=== PATIENT | female | born 1995 | race Two or more races ===

== ENCOUNTER 2025-04-09 09:33 | Outpatient (AMB) | payer OTHER, SELFPAY ==
--- NOTE | 2025-04-09 09:40 | MHC.OFFVIS ---
Vital Signs 04/09/25 09:50 BP 108/74 Position Sitting Pulse 98 Intake Visit Reasons: Migraine Follow Up Allergies No Known Allergies Allergy (Verified 04/09/25 09:43) Medication List - Last Reconciled 04/09/25 by Hazel Lares CNP bupropion HCl XL 150 mg PO DAILY buspirone 10 mg PO TID clonazepam 0.5 mg PO BID PRN ibuprofen 600 mg PO DAILY PRN sertraline 50 mg PO DAILY HPI Comments Details: 29-year-old woman with headaches since childhood. She returns after 13 months. She was having about 3 headaches/week, usually frontal but sometimes left-sided, throbbing-type pain with photophobia and sonophobia. No nausea or vomiting. She had to lay down in a dark, quiet room. She was taking ibuprofen as needed which helped most of the time. She was no longer nursing and was not planning for in the near future. She was under some stress and sleep was not so good. Review of Systems Const Denies chills, Denies daytime sleepiness, Denies difficulty sleeping, Denies fatigue, Denies fever(s), Denies frequent falls, Reports headache(s), Denies increased appetite, Denies poor appetite, Denies snoring, Denies weakness, Denies weight gain and Denies weight loss Eyes Denies loss of vision ENT Denies vertigo, Denies dizziness and Reports headache(s) Card Denies chest pain at rest, Denies chest pain with activity, Denies syncope, Denies leg edema and Denies palpitations Resp Denies snoring GI Denies constipation, Denies heartburn, Denies diarrhea and Denies nausea Denies urinary frequency, Denies urinary incontinence and Denies urinary urgency Musc Denies abnormal gait, Denies numbness and Denies tingling Skin/Breast Denies dry skin and Denies rash Neuro Denies abnormal gait, Denies vertigo, Denies dizziness, Denies syncope, Denies frequent falls, Reports headache(s), Denies lack of coordination, Denies loss of vision, Denies memory loss, Denies numbness, Denies restless legs, Denies seizure-like activity, Denies tingling, Denies paresthesias, Denies tremor(s) and Denies weakness Psych Reports anxiety, Denies depression, Denies auditory hallucinations, Denies memory loss, Denies visual hallucinations and Denies suicidal ideation Endo Denies fatigue and Denies palpitations Physical Exam Const Other: General Appearance:? normal, in no acute distress. Skin:? no rashes, no significant birthmarks. Heart:? S1, S2 normal, no murmurs. Lungs:? clear anteriorly and posteriorly. Extremities:? no edema. Psych:? alert, oriented, cognitive function intact, cooperative with exam. Neuro Other: Mental Status:?Normal attention, orientation, memory and affect.? Cranial Nerves:?Pupils are equal, round and reactive to light. External occular muscles are intact. Visual [place] are full. Face is symmetrical. Facial sensations are normal. Tongue is midline. Palate elevates symmetrically. Shoulder shrugging is normal. Hearing to bedside conversation is normal. Sensory Exam:?....? Coordination:?No ataxia,?no titubation.? Gait Exam: Within normal limits. Extrapyramidal System:?No tremor, rigidity with normal facial expressions.? Pronator Drift:?Not present.? Involuntary Movements:?No tremors seen.? Speech:?Normal.? Assessment & Plan Assessment & Plan (1) Migraine without aura: Code(s): G43.009 - Migraine without aura, not intractable, without status migrainosus Category: Medical Qualifiers: Status migrainosus presence: without status migrainosus Intractability: not intractable Qualified Code(s): G43.009 - Migraine without aura, not intractable, without status migrainosus Plan: She returned after about 13 months. She was no longer nursing her child and was interested in starting medication for migraine prevention. Start propranolol 10mg 1 tablet daily, use/side effects reviewed. Continue ibuprofen 600mg 1 tablet with food or milk as needed for headache #20 for 30 days. Plan Meds tried: sumatriptan, ibuprofen Medications: New propranolol 10 mg PO DAILY 30 tabs 1RF 30 days ibuprofen 600 mg PO DAILY PRN 20 tabs 3RF headache 30 days Coding Level of Care Code Est Pt Level 4 (79284) Diagnoses Migraine without aura and without status migrainosus, not intractable G43.009 Status migrainosus presence: without status migrainosus Intractability: not intractable
[2025-04-09 09:50] VITALS: BP 108/74; PULSE 98
--- OUTSIDE RECORDS SUMMARY | 2025-04-09 10:19 | XMS_ITS | Clinical Summary ---
Author Organization [address] Address [address] [place] [phone] Phone Care Team Providers Care Outpatient Psychiatrist Name Role Phone Gustavo Erickson MD Primary Care Provider [phone] Allergies No known active allergies Medications buPROPion XL (WELLBUTRIN XL) 150 mg 24 hr tablet Take 1 tablet (150 mg total) by mouth 1 (one) time each day. Prescribed by Psychiatrist Active cholecalcifer ol (VITAMIN D-3) 25 mcg (1,000 unit) tablet Take 1 tablet (1,000 Units total) by mouth 1 (one) time each day. 90 tablet 1 03/17/20 25 Active senna-docusat e (PERICOLACE) 8.6-50 mg per tablet Take 1 tablet by mouth 1 (one) time each day. 30 each 11 03/17/20 25 026 Active cetirizine (ZyrTEC) 10 mg capsule Take 10 mg by mouth daily. 12/31/19 24 025 Discontinued azelastine (OPTIVAR) 0.05 % ophthalmic solution Place 1 Drop into both eyes 2 times daily. 12/30/19 24 025 Discontinued cholecalcifer ol (VITAMIN D-3) 25 mcg (1,000 unit) tablet Take 1 tablet (1,000 Units total) by mouth 1 (one) time each day. 08/30/19 24 025 Discontinued(R eorder) polyethylene glycol (MIRALAX) 17 gram packet Take 17 g by mouth 1 (one) time each day for 3 days. 51 g 03/17/20 25 025 Active Problems Problem Noted Date Diagnosed Date Vulvar itching 09/27/2023 Overview (05/28/2024): Last Assessment & Plan: Explained difficult to tell at this time if she has yeast as miconazole obsures microscopy. Will send culture and treat with fluconazole empirically if her sx do not resolve by tomorrow following Miconazole. Depression 10/23/2018 Overview (05/28/2024): F/u [facility] Migraine without aura and wi thout status migrainosus, not intractable 10/23/2018 Encounters Date Type Department Care Team Description 03/17/2025 3:30 PM EDT Office Visit Adult Medicine [address] [phone] Hodan Calhoun, DORINA Annual physical exam (Primary Dx); Constipation, unspecified constipation type; Depression, unspecified depression type; Migraine without aura and without status migrainosus, not intractable; Encounter for screening for cardiovascular disorders; Need for hepatitis C screening test from Last 3 Months Immunizations Name Administration Dates Next Due HPV 9-valent (Gardisil) 9yo to less than 46yo ,10/23/2018 Surgical History Surgery Date Site/Laterality Comments WISDOM TOOTH EXTRACTION 2016 PROCEDURE: HISTORICAL WISDOM TEETH EXTRACTION Medical History Medical History Date Comments Hypoglycemia DX:Hypoglycemia Depression 10/23/2018 DX:Depression; C OMMENT: F/u [facility] at [facility] Migraine without aura and wi thout status migrainosus, not intractable 10/23/2018 DX:Migraine withou t aura and without status migrainosus, not intractable Family History Medical History Relation Name Comments Diabetes Maternal Grandmother HTN, Th yroid Disorder Cervical cancer Mother Breast cancer Neg Hx Ovarian cancer Neg Hx Uterine cancer Neg Hx Relation Name Status Comments Brother Alive Daughter Alive Father Alive Maternal Grandfather Alive Maternal Grandmother Alive Mother Alive Paternal Grandfather Alive Paternal Grandmother Alive Sister Alive Social History Tobacco Use Types Packs/Day Years Used Date Smoking Tobacco: Never Smokeless Tobacco: Never Tobacco Cessation:Counseling Given: Not Answered Alcohol Use Standard Drinks/Week Comments Not Currently 0 (1 standard drink = 0.6 oz pur e alcohol) Comments Unknown Sex and Gender Information Value Date Recorded Sex Assigned at Not on file Legal Sex Female 12:59 AM EST Gender Identity Not on file Sexual Orientation Not on file Obstetrics History Last Filed Vital Signs Vital Sign Reading Time Taken Comments Blood Pressure 112/83 03/17/2025 3:26 PM EDT Pulse 68 03/17/2025 3:26 PM EDT Temperature 36.4 C (97.6 F) 03/17/2025 3:26 PM EDT Respiratory Rate - - Oxygen Saturation - - Inhaled Oxygen Concentration - - Weight 52.2 kg (115 lb) 03/17/2025 3:26 PM EDT Height 154.9 cm (5' 1 ) 03/17/2025 3:26 PM EDT Body Mass Index 21.73 03/17/2025 3:26 PM EDT Plan of Treatment Upcoming Encounters Date Type Department Care Team (Late st Contact Info) Description 04/20/2025 11:30 AM EDT Office Visit Obstetrics and Gynecology - [id number] [place], [place] [phone] Reta Martinez, [facility] [address], [place] Health Maintenance Due Date Last Done Comments DTaP,Tdap,and Td Vaccines (1 - Tdap) 2016 HPV Vaccines (3 - 3-dose series) 05/20/2019 02/25/2019, 10/23/2018 Social Influencers of Health Screening 07/15/2022 Cervical Cancer Screening: Pap Smear 01/26/2024 01/25/2021, 01/25/2021, 01/25/2021, Additional history exists Influenza Vaccine (#1) 2025 Cholesterol Screening (Lipid Panel) 03/17/2030 03/17/2025, 03/01/2023 Depression Screening Completed 03/17/2025 HIV Screening Completed 03/17/2025, 01/25/2021 Hepatitis C Screening Completed 03/17/2025 COVID-19 Vaccine Discontinued HIB Vaccines Aged Out No longer eligi ble based on patient's age to complete this topic Hepatitis A Vaccines Aged Out No long er eligible based on patient's age to complete this topic Hepatitis B Vaccines Discontinued IPV Vaccines Aged Out No longer eligi ble based on patient's age to complete this topic MMR Vaccines Aged Out No longer eligi ble based on patient's age to complete this topic Meningococcal ACWY Vaccine Aged Out N o longer eligible based on patient's age to complete this topic Meningococcal B Vaccine Aged Out No l onger eligible based on patient's age to complete this topic Pneumococcal Vaccine: Pediatrics (0 to 5 Years) and At-Risk Patients (6 to 49 Years) Aged Out No longer eligible based on patient's age to complete this topic RSV Immunization Patients Under 20 months Aged Out No longer eligible based on patient's age to complete this topic Varicella Vaccines Aged Out No longer eligible based on patient's age to complete this topic Procedures Procedure Name Priority Date/Time Associated Diagnosis Comments HEPATITIS A ANTIBODY IGM Routine 03/17/2025 4:25 PM EDT Annual physical exam Encounter for screening for cardiovascular disorders Need for hepatitis C screening test CBC WITH AUTO DIFFERENTIAL Routine 03/17/2025 4:25 PM EDT Annual physical exam Encounter for screening for cardiovascular disorders Need for hepatitis C screening test COMPREHENSIVE METABOLIC PANEL Routine 03/17/2025 4:25 PM EDT Annual physical exam Encounter for screening for cardiovascular disorders Need for hepatitis C screening test LIPID PANEL WITH REFLEX TO DIRECT LDL Routine 03/17/2025 4:25 PM EDT Encounter for screening for cardiovascular disorders THYROID STIMULATING HORMONE WITH REFLEX TO FREE T4 AND FREE T3 Routine 03/17/2025 4:25 PM EDT Annual physical exam Encounter for screening for cardiovascular disorders Need for hepatitis C screening test CBC AND DIFFERENTIAL Routine 03/17/2025 4:25 PM EDT Annual physical exam Encounter for screening for cardiovascular disorders Need for hepatitis C screening test HEPATITIS C ANTIBODY Routine 03/17/2025 4:25 PM EDT Need for hepatitis C screening test TREPONEMA PALLIDUM ANTIBODY WITH REFLEX TO RPR AND PARTICLE AGGLUTINATION Routine 03/17/2025 4:25 PM EDT Annual physical exam Encounter for screening for cardiovascular disorders Need for hepatitis C screening test HIV 1, 2 ANTIBODY, P24 ANTIGEN WITH REFLEX TO DIFFERENTIATION Routine 03/17/2025 4:25 PM EDT Annual physical exam Encounter for screening for cardiovascular disorders Need for hepatitis C screening test HEPATITIS B SURFACE ANTIBODY Routine 03/17/2025 4:25 PM EDT Annual physical exam Encounter for screening for cardiovascular disorders Need for hepatitis C screening test HEPATITIS B SURFACE ANTIGEN WITH CONFIRMATION Routine 03/17/2025 4:25 PM EDT Annual physical exam Encounter for screening for cardiovascular disorders Need for hepatitis C screening test HEPATITIS B CORE ANTIBODY, TOTAL Routine 03/17/2025 4:25 PM EDT Annual physical exam Encounter for screening for cardiovascular disorders Need for hepatitis C screening test HEPATITIS A ANTIBODY TOTAL WITH REFLEX IGM Routine 03/17/2025 4:25 PM EDT Annual physical exam Encounter for screening for cardiovascular disorders Need for hepatitis C screening test CHLAMYDIA TRACHOMATIS AND NEISSERIA GONORRHOEAE PCR Routine 03/17/2025 4:25 PM EDT Annual physical exam Encounter for screening for cardiovascular disorders Need for hepatitis C screening test PAP SMEAR Routine 01/25/2021 from Last 3 Months or Most Recently Relevant to Health Maintenance Results * Hepatitis C antibody (03/17/2025 4:25 PM EDT) Hepatitis C Antibody Negative Negative LAB CHEMISTRY METHOD 03/17/2025 8:10 PM EDT [facility] Blood Venous blood specimen / Unknown Venipuncture / Unknown 03/17/2025 4:25 PM EDT 03/17/2025 4:25 PM EDT us Hodan Calhoun NP LAB BLOOD ORDERABLES Final R esult [facility] [address] [place] [address], [place] [phone] * HIV 1,2 antibody, p24 antigen with reflex to differentiation (03/17/2025 4:25 PM EDT) HIV Combo AB/AG Negative Negative LAB CHEMISTRY METHOD 03/17/2025 8:12 PM EDT [facility] Blood Venous blood specimen / Unknown Venipuncture / Unknown 03/17/2025 4:25 PM EDT 03/17/2025 4:25 PM EDT [facility] - 03/17/2025 8:12 PM EDT This assay is a 4th generation assay allowing for earlier detection of HIV infection by detecting the presence of the HIV-1 p24 antigen as well as the traditional antibodies to HIV type 1 (including group O) and type 2. Use of a 4th generation assay is the current CDC recommendation for HIV screening. Hodan Calhoun NP LAB BLOOD ORDERABLES Final R esult Performing Organization Address [facility] Co de Phone Number [facility] [address] [place] [address], * Hepatitis B surface antigen with reflex to confirmation (03/17/2025 4:25 PM EDT) Pathologist [facility] Hepatitis B Surface Ag Negative Negative LAB CHEMISTRY METHOD 03/17/2025 7:43 PM EDT [facility] Blood Venous blood specimen / Unknown Venipuncture / Unknown 03/17/2025 4:25 PM EDT 03/17/2025 4:25 PM EDT Narrative [facility] - 03/17/2025 7:43 PM EDT Over the counter supplements containing high doses of biotin may interfere with this assay. If interference is suspected, patients shoud be retested after refraining from biotin supplements for 72 hours. Hodan Calhoun NP LAB BLOOD ORDERABLES Final R esult Performing Organization Address [facility]/ZIP Co de Phone Number [facility] [address] [place] [address], [place] [phone] * Treponema pallidum antibody with reflex to RPR and particle agglutination (03/17/2025 4:25 PM EDT) T. Pallidum Antibodies Negative Negative LAB CHEMISTRY METHOD 03/17/2025 8:00 PM EDT [facility] Blood Venous blood specimen / Unknown Venipuncture / Unknown 03/17/2025 4:25 PM EDT 03/17/2025 4:25 PM EDT Hodan Calhoun [employer] LAB BLOOD ORDERABLES Final R esult Performing Organization Address [facility]/ZIP Co de Phone Number [facility] [address] [place] [address], [place] [phone] * Thyroid stimulating hormone with reflex to free t4 and free t3 (03/17/2025 4:25 PM EDT) Pathologist [facility] TSH 0.50 0.40 - 4.00 mcIU/mL LAB CHEMISTRY METHOD 03/17/2025 7:49 PM EDT [facility] Blood Venous blood specimen / Unknown Venipuncture / Unknown 03/17/2025 4:25 PM EDT 03/17/2025 4:25 PM EDT Hodan Calhoun [employer] LAB BLOOD ORDERABLES Final R esult [facility] [address] [place] [address], [place] [phone] * Lipid panel with reflex to direct LDL (03/17/2025 4:25 PM EDT) Pathologist [facility] Cholesterol 169 0 - 200 mg/dL LAB CHEMISTRY METHOD 03/17/2025 7:02 PM EDT [facility] Triglycerides 59 0 - 150 mg/dL LAB CHEMISTRY METHOD 03/17/2025 7:02 PM EDT [facility] HDL 57 >=40 mg/dL LAB CHEMISTRY METHOD 03/17/2025 7:02 PM EDT [facility] LDL Calculated 100 0 - 100 mg/dL LAB CHEMISTRY METHOD 03/17/2025 7:02 PM EDT [facility] Comment:Estimated LDL Calcul ated using equation: Total cholesterol - HDL cholesterol - (Triglycerides/5) VLDL Cholesterol Mark 11.8 mg/dL LAB CHEMISTRY METHOD 03/17/2025 7:02 PM EDT [facility] Non HDL Chol. (LDL+VLDL) 112 <145 mg/dL LAB CHEMISTRY METHOD 03/17/2025 7:02 PM EDT [facility] Chol/HDL Ratio 3.0 0.0 - 4.4 LAB CHEMISTRY METHOD 03/17/2025 7:02 PM EDT [facility] Blood Venous blood specimen / Unknown Venipuncture / Unknown 03/17/2025 4:25 PM EDT 03/17/2025 4:25 PM EDT us Hodan Calhoun [employer] LAB BLOOD ORDERABLES Final R esult [facility] [address] [place] [address], * (ABNORMAL) Hepatitis A antibody total with reflex IgM (03/17/2025 4:25 PM EDT) Hep A Total Ab Positive( A) Negative LAB CHEMISTRY METHOD 03/17/2025 8:11 PM EDT [facility] Blood Venous blood specimen / Unknown Venipuncture / Unknown 03/17/2025 4:25 PM EDT 03/17/2025 4:25 PM EDT Narrative [facility] - 03/17/2025 8:11 PM EDT Over the counter supplements containing high doses of biotin may interfere with this assay. If interference is suspected, patients shoud be retested after refraining from biotin supplements for 72 hours. us Hodan Calhoun [employer] LAB BLOOD ORDERABLES Final R esult [facility] [address] [place] [address], [place] [phone] * CBC auto differential (03/17/2025 4:25 PM EDT) Pathologist [facility] WBC 6.3 4.8 - 10.8 K/mcL LAB HEMETOLOGY METHOD 03/17/2025 6:27 PM EDT [facility] RBC 4.30 3.80 - 4.80 M/mcL LAB HEMETOLOGY METHOD 03/17/2025 6:27 PM EDT [facility] Hemoglobin 13.0 11.5 - 16.0 g/dL LAB HEMETOLOGY METHOD 03/17/2025 6:27 PM EDT [facility] Hematocrit 38.5 35.0 - 47.0 % LAB HEMETOLOGY METHOD 03/17/2025 6:27 PM EDT [facility] MCV 88.9 79.0 - 98.0 FL LAB HEMETOLOGY METHOD 03/17/2025 6:27 PM EDT [facility] MCH 30.0 27.0 - 32.0 pcg LAB HEMETOLOGY METHOD 03/17/2025 6:27 PM EDT [facility] MCHC 33.8 32.0 - 37.0 g/dL LAB HEMETOLOGY METHOD 03/17/2025 6:27 PM EDT [facility] RDW 11.5 11.0 - 15.0 % LAB HEMETOLOGY METHOD 03/17/2025 6:[facility] Platelets 246 130 - 400 K/mcL LAB HEMETOLOGY METHOD 03/17/2025 6:27 PM EDT [facility] MPV 10.5 7.0 - 11.0 FL LAB HEMETOLOGY METHOD 03/17/2025 6:27 [facility] NRBC 0.0 <1.0 % LAB HEMETOLOGY METHOD 03/17/2025 6:27 PM [facility] NRBC Absolute 0.00 <0.10 K/mcL LAB HEMETOLOGY METHOD 03/17/2025 6:27 PM [facility] Neutrophils Relative 64.9 % LAB HEMETOLOGY METHOD 03/17/2025 6:27 PM [facility] Lymphocytes Relative 26.4 % LAB HEMETOLOGY METHOD 03/17/2025 6:27 PM [facility] Monocytes Relative 6.8 % LAB HEMETOLOGY METHOD 03/17/2025 6:27 PM [facility] Eosinophils Relative 1.1 % LAB HEMETOLOGY METHOD 03/17/2025 6:27 PM [facility] Basophils Relative 0.5 % LAB HEMETOLOGY METHOD 03/17/2025 6:27 PM [facility] Immature Granulocytes Relative 0.3 % LAB HEMETOLOGY METHOD 03/17/2025 6:27 PM [facility] Neutrophils Absolute 4.10 1.50 - 7.00 K/mcL LAB HEMETOLOGY METHOD 03/17/2025 6:27 PM [facility] Lymphocytes Absolute 1.67 1.00 - 5.00 K/mcL LAB HEMETOLOGY METHOD 03/17/2025 6:27 PM [facility] Monocytes Absolute 0.43 0.20 - 1.00 K/mcL LAB HEMETOLOGY METHOD 03/17/2025 6:27 PM [facility] Eosinophils Absolute 0.07 0.00 - 0.50 K/mcL LAB HEMETOLOGY METHOD 03/17/2025 6:27 PM EDT [facility] Basophils Absolute 0.03 0.00 - 0.20 K/mcL LAB HEMETOLOGY METHOD 03/17/2025 6:27 PM EDT [facility] Immature Granulocytes Absolute 0.02 0.00 - 0.03 K/mcL LAB HEMETOLOGY METHOD 03/17/2025 6:27 PM EDT [facility] Blood Venous blood specimen / Unknown Venipuncture / Unknown 03/17/2025 4:25 PM EDT 03/17/2025 4:25 PM EDT Hodan Calhoun [employer] LAB BLOOD ORDERABLES Final R esult Performing Organization Address [facility] Co de Phone Number [facility] [address] [place] [address], [place] [phone] * Hepatitis A antibody IgM (03/17/2025 4:25 PM EDT) [facility] Hepatitis A Antibody IgM Negative Negative LAB CHEMISTRY METHOD 03/17/2025 9:48 PM EDT [facility] Blood Venous blood specimen / Unknown Venipuncture / Unknown 03/17/2025 4:25 PM EDT 03/17/2025 4:25 PM EDT Narrative [facility] - 03/17/2025 9:48 PM EDT Over the counter supplements containing high doses of biotin may interfere with this assay. If interference is suspected, patients shoud be retested after refraining from biotin supplements for 72 hours. Hodan Calhoun [employer] LAB BLOOD ORDERABLES Final R esult Performing Organization Address City/[facility]/ZIP Co de Phone Number [facility] [address] [place] [address], [place] [phone] * Chlamydia trachomatis and Neisseria gonorrhoeae molecular study (03/17/2025 4:25 PM EDT) [facility] Neisseria gonorrhoeae PCR Negative Negative LAB MOLECULAR DIAGNOSTICS METHOD 03/18/2025 11:22 AM EDT [facility] Chlamydia trachomatis PCR Negative Negative LAB MOLECULAR DIAGNOSTICS METHOD 03/18/2025 11:22 AM EDT [facility] Urine First stream urine specimen / Unknown Non-blood Collection / Unknown 03/17/2025 4:25 PM EDT 03/17/2025 4:25 PM EDT Hodan Calhoun [employer] LAB MICROBIOLOGY - GENERAL O RDERABLES Final Result [facility] [address] [place] [address], [place] [phone] * Hepatitis B core antibody, total (03/17/2025 4:25 PM EDT) Hep B Core Total Ab Negative Negative LAB CHEMISTRY METHOD 03/17/2025 8:11 PM EDT [facility] Blood Venous blood specimen / Unknown Venipuncture / Unknown 03/17/2025 4:25 PM EDT 03/17/2025 4:25 PM EDT Hodan Calhoun [employer] LAB BLOOD ORDERABLES Final R esult [facility] [address] [place] [address], [place] [phone] * Hepatitis B surface antibody (03/17/2025 4:25 PM EDT) Hepatitis B Surface Ab Negative Negative LAB CHEMISTRY METHOD 03/17/2025 7:32 PM EDT [facility] Hepatitis B Surface Ab Quantitative 3.2 mIU/mL LAB CHEMISTRY METHOD 03/17/2025 7:32 PM EDT [facility] Blood Venous blood specimen / Unknown Venipuncture / Unknown 03/17/2025 4:25 PM EDT 03/17/2025 4:25 PM EDT Narrative [facility] - 03/17/2025 7:32 PM EDT >=10 mIU/mL is considered to be consistent with immunity. Hodan Calhoun NP LAB BLOOD ORDERABLES Final R esult [facility] [address] [place] [address], * Comprehensive metabolic panel (03/17/2025 4:25 PM EDT) Sodium 137 133 - 145 mmol/L LAB CHEMISTRY METHOD 03/17/2025 7:02 PM [facility] Potassium 3.8 3.5 - 5.5 mmol/L LAB CHEMISTRY METHOD 03/17/2025 7:02 PM [facility] Chloride 103 96 - 110 mmol/L LAB CHEMISTRY METHOD 03/17/2025 7:02 PM [facility] CO2 29 21 - 32 mmol/L LAB CHEMISTRY METHOD 03/17/2025 7:02 PM [facility] Anion Gap 5 3 - 11 LAB CHEMISTRY METHOD 03/17/2025 7:02 PM [facility] Glucose 70 70 - 100 mg/dL LAB CHEMISTRY METHOD 03/17/2025 7:02 PM [facility] BUN 15 5 - 25 mg/dL LAB CHEMISTRY METHOD 03/17/2025 7:02 PM [facility] Creatinine 0.70 0.50 - 1.10 mg/dL LAB CHEMISTRY METHOD 03/17/2025 7:02 PM [facility] eGFR 122 >=60 mL/min/1. 73m2 LAB CHEMISTRY METHOD 03/17/2025 7:02 PM [facility] Comment:Calculation based on the Chronic Kidney Disease Epidemiology Collaboration (CKD-EPI) equation refit without adjustment for race. BUN/Creatinine Ratio 21.4 LAB CHEMISTRY METHOD 03/17/2025 7:02 PM [facility] Calcium 9.4 8.5 - 10.5 mg/dL LAB CHEMISTRY METHOD 03/17/2025 7:02 PM [facility] AST (SGOT) 20 10 - 42 unit/L LAB CHEMISTRY METHOD 03/17/2025 7:02 PM [facility] ALT (SGPT) 40 10 - 60 unit/L LAB CHEMISTRY METHOD 03/17/2025 7:02 PM [facility] Alkaline Phosphatase 66 42 - 121 unit/L LAB CHEMISTRY METHOD 03/17/2025 7:02 PM [facility] Total Protein 7.4 6.0 - 8.0 g/dL LAB CHEMISTRY METHOD 03/17/2025 7:02 PM [facility] Albumin 4.5 3.2 - 5.0 g/dL LAB CHEMISTRY METHOD 03/17/2025 7:02 PM [facility] Total Bilirubin 0.5 0.0 - 1.4 mg/dL LAB CHEMISTRY METHOD 03/17/2025 7:02 PM [facility] Blood Venous blood specimen / Unknown Venipuncture / Unknown 03/17/2025 4:25 PM EDT 03/17/2025 4:25 PM EDT Hodan Calhoun [employer] LAB BLOOD ORDERABLES Final R esult [facility] [address] [place] [address], * Pap smear (01/25/2021) 01/25/2021 Narrative HISTORICAL TESTING LAB RESULTING AGENCY - 01/31/2021 7:15 AM EDT [id number] THINPREP PAP, IMAGED: NEGATIVE FOR SQUAMOUS INTRAEPITHELIAL LESION AND MALIGNANCY . JOANN BRIDGES(ASCP) (CASE ELECTRONICALLY SIGNED 01 30 2021) ADEQUACY: SATISFACTORY ENDOCERVICAL/TRANSFORMATION ZONE COMPONENT PRESENT. SOURCE: THINPREP PAP HPV IF ASCUS, CERVICAL, IMAGED CLINICAL INFORMATION: HPV IF DIAGNOSIS OF ASCUS. Z12.4, PAP HX NEG, LMP 11/29/20 us River Osuna MD LAB CYTOLOGY ORDERABLES Final Result HISTORICAL TESTING LAB RESULTING AGENCY from Last 3 Months or Most Recently Relevant to Health Maintenance Insurance [facility] [employer] [facility] Care Teams Outpatient Psychiatrist Relationship Specialty Start Date End Date Gustavo Erickson MD [address] [place] [id number] PCP - General Internal Medicine 03/23/21
--- OUTSIDE RECORDS SUMMARY | 2025-04-09 10:19 | XMS_ITS ---
Author Name [facility] Organization Unknown Care Team Organization Name Specialty Phone Email Start Date End Da lindsey [facility] Erickson Primary Care 06/19/2022 03/30/2024
== END 2025-04-09 09:56 | disposition home or self-care (01) ==
LOC: HO.HSM 09:34
PROVIDERS: PCP Internal Medicine; Visit Provider Registered Nurse
DX: G43.009 Migraine without aura, not intractable, without status migrainosus (principal)
CPT/HCPCS: 99214

== ENCOUNTER → 2025-04-09 09:33 | Outpatient (BNVA) | payer OTHER, SELFPAY | PROVIDERS: PCP Internal Medicine; Visit Provider Registered Nurse | DX: G43.009 Migraine without aura, not intractable, without status migrainosus (principal); Z79.899 Other long term (current) drug therapy | CPT/HCPCS: 99212 ==